=== PATIENT | male | born 1995 | race African-American/Black ===

== ENCOUNTER 2016-10-20 20:53 | Emergency (ER) | payer OTHER ==
[~2016-10-20] VITALS: Ht 172.7 cm; Wt 83.3 kg
[2016-10-20 20:58] VITALS: TEMP 36.6; Ht 172.7 cm; Wt 83.3 kg
[2016-10-20] MEDS ORDERED: ACET325T96 PO (21:41)
[2016-10-20] MEDS ORDERED: IBUP-1050 PO (21:43)
[2016-10-20] MEDS ORDERED: LIDOCAINE HCL 2% VISC SOLN 20 ML UDC MT ONE (22:15)
[2016-10-20] MEDS ORDERED: HYDR-5688 PO (22:28)
[2016-10-20] MEDS ORDERED: LIDO2SOL19 PO (22:28)
[2016-10-20] MEDS ORDERED: NORCO 5/325MG HOME PACK PO ONE (22:30)
[2016-10-20 22:35] VITALS: BP 119/88; PULSE 70; O2SAT 98
--- NOTE | 2016-10-21 15:21 | EMERGENCY ROOM VISIT NOTE ---
ED Visit Note First contact with patient: 21:05 Chief Complaint: Toothache and gum pain. History of Present Illness: Mr. Prince is a 21-year-old black male who ambulates into the ED accompanied by female friend complaining of right maxillary tooth and gum pain. Historically patient reports he was seen by a dentist approximately 9 months ago. At that visit he reports that he had 3 maxillary cavities but has not followed up or sought treatment for his cavity since that time. Additionally patient reports he has been having intermittent pain over the right maxillary area for the last 4 months that has gradually gotten worse over the last 2 months. She describes his pain as a deep achy sensation that intermittently become sharp. He places his discomfort throughout teeth 1 through 8 and the associated gum. He rates his discomfort 10/10. His pain is nonradiating. His pain worsens with palpation. He reports he has been using [id number] Orajel and ibuprofen and intermittently has had mild relief but no true relief of all his pain. He denies any associated fevers, chills, sweats, recent trauma, upper respiratory tract symptoms, throat pain, facial swelling, decreased appetite, nausea, vomiting. Review of Systems: As noted above in history of present illness. 8 body systems were reviewed and found to be negative as noted above. Past Medical History: Patient denies. Current Medications: Patient denies. Allergies to Medications: Patient denies. Social History: Patient reports she is currently employed; he feels safe in his home environment; he denies tobacco. Physical Examination: Vital Signs: Date Time Temp Pulse Resp B/P Pulse Ox O2 Delivery O2 Flow Rate FiO2 10/20/16 22:35 70 16 119/88 98 10/20/16 20:58 36.6 92 18 157/90 97 Room Air GENERAL: 21-year-old male in mild distress due to pain, nontoxic-appearing, afebrile and hemodynamically stable. NEUROLOGICAL: Awake, alert and oriented to person, place and time. Answering questions appropriately and following commands. Normal gait. Good hand eye coordination. No focal motor sensory deficits. SKIN: Warm, dry and pink. No soft tissue eruptions or trauma noted. HEENT: Atraumatic and normocephalic. No facial swelling or erythema. Airway is patent. No posterior pharyngeal erythema or edema. No obvious tooth decay. No swelling or erythema of the gingiva throughout the mouth. Minimal tenderness of the right maxillary teeth. He still has his wisdom teeth they appear to be slightly impacted predominantly on the right. To be No visible or palpable abscesses to this area. Speech is normal. No submandibular or cervical lymphadenopathy. ED Course: Patient is assessed as noted above. Patient was given 50 mg of viscous lidocaine for pain. Patient was educated about tonight's findings and instructed on his treatment plan; he verbalizes understanding and agreement with this plan. Clinical Impression: Right maxillary dental pain. Possible wisdom teeth impaction. Disposition: Patient discharged home in stable condition; prior to departure he was reassessed and subjectively reported he was feeling better and rated his discomfort 2/10. Plan: Patient was prescribed viscous lidocaine and placed on a sliding pain medication scale of ibuprofen, acetaminophen and [place] for his discomfort; appropriate precautions were discussed with narcotic use. Patient was encouraged to call his dentist tomorrow for follow-up care and treatment. Patient was encouraged return ED for uncontrolled pain, facial swelling, fevers or any new/concerning symptoms.
== END 2016-10-20 22:38 | disposition home or self-care (01) ==
LOC: C.EDB 20:53 → C.EDD 22:38
DX: K08.89 Other specified disorders of teeth and supporting structures (principal)

== ENCOUNTER → 2017-08-08 | Outpatient (CLI) | payer OTHER ==
[~2017-08-08] MED LIST: ACET325T96 PO; IBUP-1050 PO
== END | disposition home or self-care (01) ==
LOC: C.LAB 00:45
DX: Z02.83 Encounter for blood-alcohol and blood-drug test (principal)

== ENCOUNTER 2017-09-15 00:01 | Emergency (ER) | payer OTHER ==
[~2017-09-15] VITALS: Ht 180.3 cm; Wt 84.6 kg
[2017-09-15 00:06] VITALS: TEMP 36.8; Ht 180.3 cm; Wt 84.6 kg
--- NOTE | 2017-09-15 00:30 | EMERGENCY ROOM VISIT NOTE ---
History Report prepared by Maury: Denisha Varghese Under the Supervision of: Dr. Tyler Salamanca M.D. First contact with patient: 00:16 Chief Complaint: ILLNESS Stated Complaint: HOT FLASHES,CHEST PAIN,FAINT,BODY ACHES,FEVER History of Present Illness The patient is a 22 year old male who presents to the Emergency Room with complaints of generalized illness beginning four days ago. The patient reports hot flashes, fever. sweating, a headache and sore throat. The patient states that he "passed out" two days ago. He states his daughter has strep throat. The patient notes decreased appetite over the past couple days. Presently, the patient has chills. 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 Source of History: patient Onset: 4 days ago Position: other (global) Quality: other (generalized illness) Associated Symptoms: + fevers, + chills, + headache, + diaphoresis, + sorethroat Review of Systems See HPI for pertinent positives & negatives. A total of 10 systems reviewed and were otherwise negative. Past Medical & Surgical Medical Problems: (1) Concussion (2) Tuberculosis positive PPD, was treated with 9 months abx per patient Family History Patient reports no known family medical history. Social History Smoking Status: Current Some Day Smoker Marital Status: single Housing Status: lives with family Current/Historical Medications Scheduled Penicillin V Potassium (Veetids), 500 MG PO TID Scheduled PRN Acetaminophen Tab (Tylenol), 650 MG PO Q4H PRN for Pain Ibuprofen (Advil), 200-600 MG PO Q4H PRN for Pain Allergies Coded Allergies: No Known Allergies (Unverified , 09/15/17) Physical Exam Vital Signs Date Time Temp Pulse Resp B/P (MAP) Pulse Ox O2 Delivery O2 Flow Rate FiO2 09/15/17 01:16 80 16 129/76 98 09/15/17 00:06 36.8 80 18 139/90 100 Room Air Physical Exam GENERAL: Patient is well appearing and in minimal distress. HEENT: No acute trauma, normocephalic atraumatic, erythema posterior oropharynx , mucous membranes moist, no nasal congestion, no scleral icterus. NECK: No stridor, non-specific lymphadenopathy anterior neck, no meningismus, trachea is midline. LUNGS: No dyspnea. Clear to auscultation and equal bilaterally. No wheeze, no rhonchi. HEART: Regular rate and rhythm. No murmurs, rubs, gallops appreciated. ABDOMEN: Soft, nontender, bowel sounds positive, no masses appreciated, no peritonitis. BACK: No midline tenderness, no CVA tenderness EXTREMITIES: Normal motion all extremities, no cyanosis, no edema. NEUROLOGIC: Alert and oriented, no acute motor or sensory deficits, no focal weakness, cranial nerves grossly intact. SKIN: No rash, no jaundice, no diaphoresis. Medical Decision & Procedures ER Provider Diagnostic Interpretation: X ray results are stated below per my interpretation: Chest: 1 view: No infiltrate, no effusion, normal cardiac border. No clear evidence of cavitary lesions by imaging Medications Administered Medications (Trade) Dose Ordered Sig/Leela Route Start Time Stop Time Status Last Admin Dose Admin Penicillin V Potassium (Veetids Tab) 500 mg ONE ONCE PO 09/15/17 01:15 09/15/17 01:16 DC 09/15/17 01:14 500 MG ECG Indication: diaphoresis, syncope Rate (beats per minute): 75 Rhythm: normal sinus Findings: no acute ischemic change, no ectopy, other (normal QTC) ED Course 0017: The patient was evaluated in room B2. A complete history and physical exam was performed. 0104: I updated the patient on his test results. He is ready to go home. 0115: Ordered Veetids Tab 500 mg PO. 0119: Reevaluated the patient. Discussed results and discharge instructions: She verbalized understanding and agreement. The patient is ready for discharge. Medical Decision Differential: Viral, Tonsillitis, Strep, [place], Peritonsillar Abscess, Retropharyngeal Abscess, Otitis, Pneumonia, Influenza, amongst other pathologies entertained. 22 yr old male with sore throat and viral like illness, however daughter with known strep and he does have pharyngeal erythema. Went ahead with CXR given symptoms and history +PPD, though no evidence pna nor overt evidence TB. Symptoms do not seem consistent with active TB infection, plus fact he has been treated with meds already for it. Advised discussing monitoring by PCP. Will go ahead and treat as strep with PNVK. I did opt to get EKG given report of possible synocpe (though he admits he may have just fallen asleep). EKG unremarkable. He does not wish further testing. Reviewed symptoms requiring return. Medication Reconcilliation Current Medication List: was personally reviewed by me Blood Pressure Screening Patient's blood pressure: Elevated blood pressure Blood pressure disposition: Elevated BP felt to be situational Impression Primary Impression: Upper respiratory infection Additional Impressions: Sore throat Syncope Scribe Attestation The scribe's documentation has been prepared under my direction and personally reviewed by me in its entirety. I confirm that the note above accurately reflects all work, treatment, procedures, and medical decision making performed by me. Departure Information Dispostion Home / Self-Care Prescriptions Penicillin V Potassium (Veetids) 500 Mg Tab 500 MG PO TID for 10 Days, #30 TAB Prov: Tyler Salamanca M.D. 09/15/17 Forms HOME CARE DOCUMENTATION FORM, IMPORTANT VISIT INFORMATION, WORK / SCHOOL INSTRUCTIONS Patient Instructions ED Fever Control, [facility] Health Problem Qualifiers
[2017-09-15] MEDS ORDERED: PENI-82 PO (01:09)
[2017-09-15] MEDS ORDERED: PENICILLIN V POTASSIUM 250 MG TAB PO ONE (01:15)
[2017-09-15 01:16] VITALS: BP 129/76; PULSE 80; O2SAT 98
--- NOTE | 2017-09-15 06:59 | DIAGNOSTIC IMAGING REPORT ---
CHEST ONE VIEW PORTABLE CLINICAL HISTORY: persistent fevers/chills COMPARISON STUDY: No previous studies for comparison. FINDINGS: The cardiac and mediastinal contours are normal. There is no evidence of focal pulmonary consolidation. There is no evidence of failure. No pleural effusions are visualized.[ IMPRESSION: No active disease in the chest. Electronically signed by: Boy Everett M.D. 09/15/2017 6:58 AM Dictated Date/Time: 09/15/2017 6:57 AM
== END 2017-09-15 01:15 | disposition home or self-care (01) ==
LOC: C.EDB 00:03
DX: J06.9 Acute upper respiratory infection, unspecified (principal); J02.9 Acute pharyngitis, unspecified; R55 Syncope and collapse; F17.200 Nicotine dependence, unspecified, uncomplicated; Z87.820 Personal history of traumatic brain injury; Z86.11 Personal history of tuberculosis